=== PATIENT | male | born 1990 | race Asian ===

== ENCOUNTER 2019-05-11 12:50 | Emergency (ER) | payer SELFPAY ==
[~2019-05-11] VITALS: Ht 152.4 cm; Wt 56.2 kg
[2019-05-11 14:15] VITALS: BP 124/77
[2019-05-11] MEDS ORDERED: DIPHTH,PERTUSS(ACELL),TET TOX 0.5 ML DISP.SYRIN. VAX IM ONE (15:30)
--- NOTE | 2019-05-11 16:07 | RAD ---
CT MAXILLOFACIAL WO CONTRAST Indication: Fell down steps Exposure: One or more of the following individualized dose reduction techniques were utilized for this examination: 1. Automated exposure control 2. Adjustment of the mA and/or kV according to patient size 3. Use of iterative reconstruction technique. Technique: Standard imaging without intravenous contrast. Head: No evidence of acute intracranial hemorrhage, mass effect, midline shift or abnormal extra-axial fluid collection. Ventricles and sulci appear within normal limits. Rogers-white matter distinction is intact. Partially seen orbits appear unremarkable. No significant scalp hematoma. Partially visualized sinuses are clear. No evidence of depressed skull fracture although a specific location of pain or tenderness is not known. IMPRESSION: No evidence of acute intracranial hemorrhage. Facial bones Fracture of the nasal bone with depression/impaction of fragments. Orbital floors appear intact. No other fractures are seen. Mild mucosal thickening of the maxillary, sphenoid and ethmoid sinuses. No fluid levels in the paranasal sinuses. Temporomandibular joints are intact. No evidence of mandible or maxilla fracture. There appear to be dental caries particularly in the right maxilla. No significant soft tissue abnormality. The globes and orbital contents appear intact and symmetric. IMPRESSION: Nasal bone fracture with impaction/depression. Cervical spine Visualized skull base appears intact. Ring of C1 is intact. Cervico-occipital junction is intact. C1 and C2 appears symmetric. No evidence of an acute fracture. No aggressive bone destruction. Vertebral body height is maintained alignment intact without significant subluxation. Facet joints are intact without perched or locked facet joint. Prevertebral soft tissues demonstrate no significant swelling or hematoma. The thyroid appears grossly symmetric. IMPRESSION: No evidence of acute fracture or subluxation. Electronically signed by: Augustin Godwin MD (05/11/2019 4:04 PM) [facility]
--- NOTE | 2019-05-11 16:36 | PHYS DOC ---
Past Medical History Past Medical History: No Pertinent History (MENDY NOGUERA APRN) Past Surgical History: Other Additional Past Surgical Histo: RT HAND SURGERY (MENDY NOGUERA APRN) Alcohol Use: Occasionally Drug Use: None (MENDY NOGUERA APRN) Adult General Chief Complaint Chief Complaint: FACE PAIN HPI HPI Patient is a 29 year old male who presents to the ED today complaining of facial trauma, patient states he was drunk yesterday had 3 beers was walking down a dark staircase when he slipped and fell hitting his face on the staircase. Denies any loss of consciousness. Complaining of mild pain on the anterior face. Denies any neck pain. Denies any mid or low back pain. Describes the pain as throbbing and tense. He states he had a nose bleed episode yesterday which stopped right away. He states he fell down 5 steps. Denies any hematuria. (MENDY NOGUERA APRN) Review of Systems Review of Systems Constitutional: Denies fever or chills [] Eyes: Denies change in visual acuity, redness, or eye pain [] HENT: Reports facial trauma. Denies nasal congestion or sore throat [] Respiratory: Denies cough or shortness of breath [] Cardiovascular: No additional information not addressed in HPI [] GI: Denies abdominal pain, nausea, vomiting, bloody stools or diarrhea [] : Denies dysuria or hematuria [] Musculoskeletal: Denies back pain or joint pain [] Integument: Denies rash or skin lesions [] Neurologic: Denies headache, focal weakness or sensory changes [] All other systems were reviewed and found to be within normal limits, except as documented in this note. (MENDY NOGUERA APRN) Current Medications Current Medications Current Medications Medications (Trade) Dose Ordered Sig/Alberta Start Time Stop Time Status Last Admin Dose Admin Diphtheria/ Tetanus/Acell Pertussis (Boostrix) 0.5 ml ONCE ONCE 05/11/19 15:30 05/11/19 15:31 DC 05/11/19 15:38 0.5 ML (SALVADOR SCALES MD) Allergies Allergies Allergies Coded Allergies Type Severity Reaction Last Updated Verified No Known Drug Allergies 05/11/19 No (SALVADOR SCALES MD) Physical Exam Physical Exam Constitutional: Well developed, well nourished, no acute distress, non-toxic appearance. [] HENT: Mild periorbital ecchymosis noted on bilateral lower eyelids, bruising also noted on the nasal bridge, dry blood nose and on bilateral nasal cavities. Normocephalic, bilateral external ears normal, oropharynx moist, no oral exudates, Eyes: PERRLA, EOMI, conjunctiva normal, no discharge. [] Neck: Normal range of motion, no tenderness, supple, no stridor. [] Cardiovascular:Heart rate regular rhythm, no murmur [] Lungs & Thorax: Bilateral breath sounds clear to auscultation [] Abdomen: Bowel sounds normal, soft, no tenderness, no masses, no pulsatile masses. [] Skin: Warm, dry, no erythema, no rash. [] Back: No tenderness, no CVA tenderness. [] Extremities: No tenderness, no cyanosis, no clubbing, ROM intact, no edema. [] Neurologic: Alert and oriented X 3, normal motor function, normal sensory function, no focal deficits noted. Cranial nerves II through XII intact Psychologic: Affect normal, judgement normal, mood normal. [] (MENDY NOGUERA APRN) Current Patient Data Vital Signs Vital Signs Date Time Temp Pulse Resp B/P (MAP) Pulse Ox O2 Delivery O2 Flow Rate FiO2 05/11/19 14:15 97.7 77 16 124/77 (93) 99 Room Air 97.7 (SALVADOR SCALES MD) EKG EKG [] (MENDY NOGUERA APRN) Radiology/Procedures Radiology/Procedures []PROCEDURE: CT HEAD AND CERVICAL SPINE WO CT head, facial bones and cervical spine Indication: Fell down steps Exposure: One or more of the following individualized dose reduction techniques were utilized for this examination: 1. Automated exposure control 2. Adjustment of the mA and/or kV according to patient size 3. Use of iterative reconstruction technique. Technique: Standard imaging without intravenous contrast. Head: No evidence of acute intracranial hemorrhage, mass effect, midline shift or abnormal extra-axial fluid collection. Ventricles and sulci appear within normal limits. Rogers-white matter distinction is intact. Partially seen orbits appear unremarkable. No significant scalp hematoma. Partially visualized sinuses are clear. No evidence of depressed skull fracture although a specific location of pain or tenderness is not known. IMPRESSION: No evidence of acute intracranial hemorrhage. Facial bones Fracture of the nasal bone with depression/impaction of fragments. Orbital floors appear intact. No other fractures are seen. Mild mucosal thickening of the maxillary, sphenoid and ethmoid sinuses. No fluid levels in the paranasal sinuses. Temporomandibular joints are intact. No evidence of mandible or maxilla fracture. There appear to be dental caries particularly in the right maxilla. No significant soft tissue abnormality. The globes and orbital contents appear intact and symmetric. IMPRESSION: Nasal bone fracture with impaction/depression. Cervical spine Visualized skull base appears intact. Ring of C1 is intact. Cervico-occipital junction is intact. C1 and C2 appears symmetric. No evidence of an acute fracture. No aggressive bone destruction. Vertebral body height is maintained alignment intact without significant subluxation. Facet joints are intact without perched or locked facet joint. Prevertebral soft tissues demonstrate no significant swelling or hematoma. The thyroid appears grossly symmetric. IMPRESSION: No evidence of acute fracture or subluxation. Electronically signed by: Augustin Godwin MD (05/11/2019 4:58 PM) [facility] DICTATED and SIGNED BY: AUGUSTIN GODWIN MD DATE: 05/11/191657 (MENDY NOGUERA APRN) Course & Med Decision Making Course & Med Decision Making Pertinent Labs and Imaging studies reviewed. (See chart for details) This is a 29-year-old male patient presenting to the ED today with complaints of falling the down 5 steps yesterday while drunk. CT of the head, cervical spine and maxillofacial are negative for any acute findings. Patient was given a tetanus shot. Offered help with alcohol abuse, he declined. Discharged to home. Tylenol for pain. Follow-up with PCP in 1-2 weeks. (MENDY NOGUERA APRN) Course & Med Decision Making Staff Physician Addendum: I was working in the ER during the course of this patient's visit. I was available for consultation as needed, but I was not directly involved in the care of this patient. (SALVADOR SCALES MD) Dragon Disclaimer Dragon Disclaimer This electronic medical record was generated, in whole or in part, using a voice recognition dictation system. (MENDY NOGUERA APRN) Departure Departure Impression: Primary Impression: Facial contusion Additional Impression: Fall down steps Disposition: 01 HOME, SELF-CARE Condition: STABLE Referrals: NO PCP (PCP) Follow-up with your own doctor in 1-2 weeks Patient Instructions: Alcohol Problems, Contusion, [id number] Additional Instructions: You were evaluated in the emergency room after falling yesterday, your cat scan of the head, face and neck are negative for any acute findings. Try to ice and elevate the affected areas. You can take Tylenol as needed for pain. Follow-up with your doctor in 1-2 weeks. Problem Qualifiers Primary Impression: Facial contusion Encounter type: initial encounter Qualified Codes: S00.83XA - Contusion of other part of head, initial encounter Additional Impression: Fall down steps Encounter type: initial encounter Qualified Codes: W10.8XXA - Fall (on) (from) other stairs and steps, initial encounter MENDY NOGUERA APRN May 11, 2019 16:36 SALVADOR SCALES MD May 11, 2019 17:50
== END 2019-05-11 17:27 | disposition home or self-care (01) ==
LOC: ER 12:50
DX: S00.33XA Contusion of nose, initial encounter (principal); R51 Headache; W10.8XXA Fall (on) (from) other stairs and steps, initial encounter; Y93.01 Activity, walking, marching and hiking; Y92.89 Other specified places as the place of occurrence of the external cause; Y99.8 Other external cause status
CPT/HCPCS: 70450; 70486; 72125; 90471; 90715; 99284

== ENCOUNTER 2019-10-01 17:04 | Emergency (ER) | payer OTHER ==
[~2019-10-01] VITALS: Ht 160 cm; Wt 56.8 kg
[2019-10-01 17:30] VITALS: BP 147/85
--- NOTE | 2019-10-01 18:12 | PHYS DOC ---
Past Medical History Past Medical History: No Pertinent History Past Surgical History: Other Additional Past Surgical Histo: RT HAND SURGERY Alcohol Use: Occasionally Drug Use: None Adult General Chief Complaint Chief Complaint: FINGER INJURY [facility] Patient is a 29 year old male who presents with swelling to his third digit on his right hand and states that a week ago the distal tip of his finger turned black. 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 He states he injured his finger at this time . Denies any other symptoms. Complete ROS were reviewed and found to be within normal limits, except as documented in the [facility] Allergies Allergies Allergies Coded Allergies Type Severity Reaction Last Updated Verified No Known Drug Allergies 05/11/19 No Physical Exam Physical Exam Constitutional: Well developed, well nourished, no acute distress, non-toxic appearance. [] HENT: Normocephalic, atraumatic, bilateral external ears normal, oropharynx moist, no oral exudates, nose normal. [] Eyes: PERRLA, EOMI, conjunctiva normal, no discharge. [] Extremities: Edema to distal 3rd digit on R hand with black finger tip. Neurologic: Alert and oriented X 3, normal motor function, normal sensory function, no focal deficits noted. [] Psychologic: Affect normal, judgement normal, mood normal. [] Current Patient Data Vital Signs Vital Signs Date Time Temp Pulse Resp B/P (MAP) Pulse Ox O2 Delivery O2 Flow Rate FiO2 10/01/19 17:30 98.4 75 19 147/85 (105) 98 Room Air 98.4 EKG EKG [] Radiology/Procedures Radiology/Procedures [][facility] [address] [place] [address] IMAGING REPORT Signed PATIENT: FORD CASEY ACCOUNT: [id number] : 1990 LOCATION: ER AGE: 29 SEX: M EXAM STATUS: REG ER ORD. PHYSICIAN: CELESTINO OG APRN REASON: injury to 3rd digit on 09/18. Edema and distal black finger tip PROCEDURE: HAND RIGHT 3V ADDENDUM Addendum: Repeat lateral view of the third digit was obtained. No fracture is identified. Electronically signed by: Mrailyn Sims MD (10/01/2019 8:13 PM) [facility] DICTATED AND SIGNED BY: MARILYN SIMS MD DATE: 10/01/192012 CC: CELESTINO OG APRN; NO PCP ~ Exam: Right hand 3 views INDICATION: Injury to third digit 2 weeks ago TECHNIQUE: Frontal, lateral and oblique views of the right hand. Comparisons: None FINDINGS: There is angulation at the distal interphalangeal joint of the third digit. Evaluation for fracture on lateral view is limited secondary to overlying anatomic structures. No definite fractures identified. There is soft tissue swelling surrounding this area. IMPRESSION: Angulation at the distal interphalangeal joint of the third digit. No fracture is seen however lateral view somewhat limited secondary to overlying digits. Recommend dedicated lateral view of the third digit to exclude possible volar plate fracture Electronically signed by: Marilyn Sims MD (10/01/2019 6:20 PM) [facility] DICTATED and SIGNED BY: MARILYN SIMS MD DATE: 10/01/191819 Course & Med Decision Making Course & Med Decision Making Pertinent Labs and Imaging studies reviewed. (See chart for details) Will get imaging. Imaging does not show fracture. Will refer to Hand Surgeon for further evaluation and place on Augmentin. Dragon Disclaimer Dragon Disclaimer This electronic medical record was generated, in whole or in part, using a voice recognition dictation system. Departure Departure Impression: Primary Impression: Finger injury Disposition: HOME, SELF-CARE Condition: STABLE Referrals: NO PCP (PCP) Additional Instructions: Thank you for visiting [facility]. We appreciate you trusting us with your care. If any additional problems come up don't hesitate to return to visit us. Please follow up with your primary care provider so they can plan additional care if needed and know about the problem that you had. If symptoms worsen come back to the Emergency Department. Any concerning symptoms that start such as chest pain, shortness of air, weakness or numbness on one side of the body, running high fevers or any other concerning symptoms return to the ER. Please follow up with an Hand Surgeon: Dr. Carlos VERGARA Hand Surgery Call [phone] You have been prescribed an antibiotic today to help fight your infection. Please take all of the antibiotic as directed. If after 48 hours the infection is not improving, please return for more care. If the infection worsens, return to ER for additional care. Scripts Amoxicillin/Potassium Clav (AUGMENTIN 875-125 TABLET) 1 Each Tablet 1 TAB PO BID for 10 Days, #20 TAB 0 Refills Prov: CELESTINO OG APRN 10/01/19 Problem Qualifiers Primary Impression: Finger injury Encounter type: initial encounter Laterality: right Qualified Codes: S69.91XA - Unspecified injury of right wrist, hand and finger(s), initial encounter CELESTINO OG APRN Oct 01, 2019 18:12
--- NOTE | 2019-10-01 18:23 | RAD ---
Exam: Right hand 3 views INDICATION: Injury to third digit 2 weeks ago TECHNIQUE: Frontal, lateral and oblique views of the right hand. Comparisons: None FINDINGS: There is angulation at the distal interphalangeal joint of the third digit. Evaluation for fracture on lateral view is limited secondary to overlying anatomic structures. No definite fractures identified. There is soft tissue swelling surrounding this area. IMPRESSION: Angulation at the distal interphalangeal joint of the third digit. No fracture is seen however lateral view somewhat limited secondary to overlying digits. Recommend dedicated lateral view of the third digit to exclude possible volar plate fracture Electronically signed by: Marilyn Smith MD (10/01/2019 6:20 PM) [facility]
[2019-10-01] MEDS ORDERED: AMOX1TAB61 PO (20:30)
[2019-10-01] MEDS ORDERED: DIPHTH,PERTUSS(ACELL),TET TOX 0.5 ML DISP.SYRIN. VAX IM ONE (21:00)
== END 2019-10-01 20:40 | disposition home or self-care (01) ==
LOC: ER 17:04
DX: S69.91XA Unspecified injury of right wrist, hand and finger(s), initial encounter (principal); Z98.890 Other specified postprocedural states; X58.XXXA Exposure to other specified factors, initial encounter; Y93.89 Activity, other specified; Y92.69 Other specified industrial and construction area as the place of occurrence of the external cause; Y99.0 Civilian activity done for income or pay
CPT/HCPCS: 73130; 90471; 90715; 99284